=== PATIENT | male | born 2000 | race Caucasian/White ===

== ENCOUNTER 2019-06-01 17:48 | Emergency (ER) | payer OTHER, SELFPAY ==
[2019-06-01 18:12] VITALS: BP 73/58; PULSE 160; RESP 28; TEMP 37.7; O2SAT 98
--- NOTE | 2019-06-01 19:14 | ED.URI ---
HPI - URI/Sore Throat General Chief Complaint: Upper Respiratory Infection Stated Complaint: Sore throat/Congestion/Headache/Fever Time Seen by Provider: 06/01/19 18:50 Source: patient, family and RN notes reviewed Mode of arrival: ambulatory Limitations: no limitations History of Present Illness HPI Narrative: 19 year old male accompanied by mother with complaints of severe sore throat, fever,dizziness gradually getting worse the past 4 days.Patient has pain with opening his mouth, tongue is dry and white, tonsils red and swollen with no exudate or lesions noted, uvula red and swollen but midline, patient stating difficulty with swallowing. Patient states nausea and gags frequently not taking fluids well and no appetite, patient is extremely pale and states pain to throat is 10/10. Respirations even and nonlabored with rate 28 per minute and SAO2 98% on room air, lungs auscultated to be clear. MD elicited complaint: fever, cough, sore throat and rhinorrhea Pertinent past history: seasonal allergies Onset (ago): day(s) (5) Consistency: progressively worsening Severity: severe Pain scale (0-10): 10 Description of mucous: clear Able to tolerate fluids by mouth: No Exacerbating factors: swallowing, exertion, speaking and deep breaths Relieving factors: nothing Associated symptoms: fever, chills, rhinorrhea, sore throat, cough and vomiting (frequent gagging) Treatments prior to arrival: ibuprofen and other (flonase and Mucinex) Related Data Home Medications Medication Instructions Recorded Confirmed fluticasone propionate [Flonase 1 spray INTRANASAL DAILY 06/01/19 06/01/19 Allergy Relief] Allergies Allergy/AdvReac Type Severity Reaction Status Date / Time No Known Allergies Allergy Verified 06/01/19 18:28 Review of Systems Review of Systems: Narrative: CONSTITUTIONAL: Positive fever, chills, or sweats. EYES: Denies visual changes, redness, or discharge. ENT:positive rhinorrhea, congestion, sore throat, no otalgia. CARDIOVASCULAR: Denies chest pain, palpitations, or edema. RESPIRATORY:positive dry cough no dyspnea. GASTROINTESTINAL: Denies abdominal pain,positive nausea, gagging but no vomiting or diarrhea. GENITOURINARY: Denies dysuria or hematuria. SKIN: Denies rash or itching. MUSCULOSKELETAL: Denies back pain, joint pain, or myalgia. NEUROLOGIC: Denies headache, numbness, positive weakness and dizziness. PSYCHIATRIC:positive anxiety no depression. All systems reviewed & are unremarkable except as noted in HPI and below PMFSH Past Medical History Medical History (Updated 06/04/19 @ 15:06 by Loretta Tucker NP) Anxiety Asthma Seasonal allergies Social History Social History (Updated 06/04/19 @ 15:06 by Loretta Tucker NP) Tobacco type: e-cigarettes Living arrangements: with family Gender identity (if verbalized by the patient): Male Comments At time of signature, agree with nursing past medical, surgical, social and family history. There is no relevant family history pertinent to the presenting complaint Exam Const: General: alert and ill appearing Nutritional Appearance: thin Orientation/consciousness: patient oriented x3 Other: anxious HENMT: Ears: external ears normal and TM's normal bilaterally General nose exam: Normal external nose present, Normal nares present (red) and Nasal discharge present (clear) Mouth: Yes dry mucous membranes and Yes Abnormal oral and palatal mucosa present Teeth and gingiva: dentition normal Throat: uvula midline (red and swollen, tonsils red swollen no lesions or exudate noted) Eyes: Conjunctivae: conjunctivae normal Pupils: Equal, round and reactive pupils present EOM: EOMs intact bilaterally Neck: Neck: lymphadenopathy Chest: Chest palpation & inspection: normal inspection of the chest Resp: Effort & Inspection: normal respiratory effort and tachypneic (28 per minute) Auscultation: clear to auscultation bilaterally Cardio: Rate: tachycardic Rhythm:
[2019-06-01] MEDS: ONDANSETRON HCL ODT 4 MG TABLET PO (19:38)
[2019-06-01] MEDS: methylPREDNISolone ACETATE 80 MG/ML VIAL IM (19:38)
== END 2019-06-01 20:13 | disposition home or self-care (01) ==
PROVIDERS: Emergency Provider Registered Nurse
DX: J03.90 Acute tonsillitis, unspecified (principal); R11.2 Nausea with vomiting, unspecified; F17.200 Nicotine dependence, unspecified, uncomplicated; F41.9 Anxiety disorder, unspecified; J45.909 Unspecified asthma, uncomplicated
CPT/HCPCS: 87081; 87804; 87880; 96372; 99203; A9270; G0463; J1040

== ENCOUNTER 2021-08-20 14:16 | Emergency (ER) | payer OTHER, SELFPAY ==
[2021-08-20 14:32] VITALS: BP 117/65; PULSE 82; RESP 18; TEMP 36.9; O2SAT 98
--- NOTE | 2021-08-20 15:26 | ED.SKABFB ---
HPI - Skin/Abscess/Foreign Bdy General Chief complaint: Skin/Abscess/Foreign Body Stated complaint: Left arm possible infection Time Seen by Provider: 08/20/21 15:15 Source: patient, RN notes reviewed and old records reviewed Mode of arrival: ambulatory Limitations: no limitations History of Present Illness HPI narrative: 21 year old male presents to [facility] care with complaints of red irritated rash to his left forearm and also to the posterior aspect of his right leg with also new area on right arm. Rash is red irregular diffuse with clear drainage noted. 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 Patient states that rash is itchy denies any difficulty with his swallowing or breathing. MD complaint: rash Onset (ago): day(s) (4-5 days) Quality: pruritic Related Data Home Medications Medication Instructions Recorded Confirmed lamotrigine 25 mg PO DAILY 08/20/21 08/20/21 Allergies Allergy/AdvReac Type Severity Reaction Status Date / Time No Known Allergies Allergy Verified 08/20/21 14:48 Review of Systems Review of Systems: CONSTITUTIONAL: Denies fever, chills, or sweats. EYES: Denies visual changes, redness, or discharge. ENT: Denies rhinorrhea, congestion, sore throat, or otalgia. CARDIOVASCULAR: Denies chest pain, palpitations, or edema. RESPIRATORY: Denies cough or dyspnea. GASTROINTESTINAL: Denies abdominal pain, nausea, vomiting, or diarrhea. GENITOURINARY: Denies dysuria or hematuria. SKIN: Positive rash with itching to the posterior aspect of left forearm, small area on right arm and on posterior aspect of left leg MUSCULOSKELETAL: Denies back pain, joint pain, or myalgia. NEUROLOGIC: Denies headache, numbness, or weakness. PSYCHIATRIC: Positive for anxiety or depression. All systems reviewed & are unremarkable except as noted in HPI and below PMFSH Past Medical History Medical History Anxiety Asthma Seasonal allergies Social History Social History Tobacco type: e-cigarettes/vaping Gender identity (if verbalized by the patient): Male Comments At time of signature, agree with nursing past medical, surgical, social and family history. There is no relevant family history pertinent to the presenting complaint Exam Narrative: GENERAL: Well-appearing, well-nourished, and in no acute distress. HEAD: Normocephalic, atraumatic. EYES: PERRLA and EOMI. ENT: Nares clear, no rhinorrhea or epistaxis. Mucous membranes moist.TM's normal with good light reflex, throat pink with no lesion or tonsil swelling. NECK: Supple.no lymphadenopathy CHEST: Clear to auscultation. No respiratory distress.SAO2 98% on room air, no dyspnea or wheezing noted HEART: Regular rate and rhythm. No murmur heard. Normal peripheral pulses. ABDOMEN: Soft, nontender, nondistended, normal active bowel sounds. EXTREMITIES: Normal range of motion. No edema. SKIN: Warm, dry, red raised irregular shaped rash with clear drainage noted from area, is itchy NEURO: No focal deficits. Alert and oriented x3. Course Course Level of Care: Express Care Visit Vital Signs Vital signs: Vital Signs Temperature 36.9 C 08/20/21 14:32 Pulse Rate 82 08/20/21 14:32 Respiratory Rate 18 08/20/21 14:32 Blood Pressure 117/65 08/20/21 14:32 Pulse Oximetry 98 08/20/21 14:32 Temperature 36.9 C 08/20/21 14:32 Pulse Rate 82 08/20/21 14:32 Respiratory Rate 18 08/20/21 14:32 Blood Pressure 117/65 08/20/21 14:32 Pulse Oximetry 98 08/20/21 14:32 MDM - Skin/Abscess/Foreign Bdy Differential Diagnosis Differential diagnosis: Likely abscess of skin or subcutaneous tissue, allergic reaction to drug, eczema, impetigo, contact derm
== END 2021-08-20 15:40 | disposition home or self-care (01) ==
PROVIDERS: Emergency Provider Registered Nurse; PCP Nurse Practitioner Family
DX: L25.9 Unspecified contact dermatitis, unspecified cause (principal); J45.909 Unspecified asthma, uncomplicated; F17.290 Nicotine dependence, other tobacco product, uncomplicated
CPT/HCPCS: 99213; G0463

== ENCOUNTER 2022-04-14 10:05 | Emergency (ER) | payer OTHER, SELFPAY ==
[2022-04-14 10:14] VITALS: BP 118/72; PULSE 97; RESP 14; TEMP 37; O2SAT 98
--- NOTE | 2022-04-14 11:18 | ED.URI ---
HPI - URI/Sore Throat General Stated Complaint: Fever/Congestion/Cough Time Seen by Provider: 04/14/22 11:18 Source: patient and RN notes reviewed Mode of arrival: ambulatory Limitations: no limitations History of Present Illness HPI Narrative: 22-year-old male presenting for complaint of headache, body aches, sinus pressure/congestion, cough, fever/chills. Endorses vomiting last night due to cough. onset 2 days. He denies shortness of breath, chest pain, heart racing or diarrhea. He has taken ibuprofen for symptoms. Endorses several sick contacts at work with influenza or COVID. He plans to take a COVID test at home. elicited complaint: cough Related Data Home Medications Medication Instructions Recorded Confirmed No Home Medications 04/14/22 04/14/22 Allergies Allergy/AdvReac Type Severity Reaction Status Date / Time No Known Allergies Allergy Verified 04/14/22 11:08 Review of Systems Review of Systems: ROS per HPI PMFSH Past Medical History Medical History Anxiety Asthma Seasonal allergies Social History Social History Tobacco type: e-cigarettes/vaping Gender identity (if verbalized by the patient): Male Exam Narrative: GENERAL: Ill-appearing, nontoxic no acute distress. HEAD: Normocephalic EYES: PERRLA, conjunctivae clear ENT: Mucous membranes moist. TMs pearly tinoco with dull light reflex bilaterally; no tragal tenderness. Oropharynx erythematous without lesions or exudate, no drooling, no hoarseness, no trismus, uvula midline. No tripod positioning, muffled voice, soft palate or pharyngeal wall bulging NECK: Supple. No lymphadenopathy CHEST: Clear to auscultation, breath sounds equal. No wheezing, rhonchi, rales, or stridor. No respiratory distress, speaks in full sentences. HEART: Regular rate and rhythm. No murmur heard. SKIN: Warm, dry, no rash. NEURO: Alert and oriented x3. PSYCH: Normal mood and affect Course Course Emergency Course: Patient is aware of diagnosis, understands and agrees to treatment plan. Anticipatory guidance given. Patient agrees to follow-up as directed and is aware of reasons to seek care at the emergency department. Portions of this record may have been created with voice recognition software Level of Care: Express Care Visit Vital Signs Vital signs: Vital Signs Temperature 98.6 F 04/14/22 10:14 Pulse Rate 97 04/14/22 10:14 Respiratory Rate 14 04/14/22 10:14 Blood Pressure 118/72 04/14/22 10:14 Pulse Oximetry 98 04/14/22 10:14 Oxygen Delivery Room Air 04/14/22 10:14 Temperature 98.6 F 04/14/22 10:14 Pulse Rate 97 04/14/22 10:14 Respiratory Rate 14 04/14/22 10:14 Blood Pressure 118/72 04/14/22 10:14 Pulse Oximetry 98 04/14/22 10:14 Oxygen Delivery Room Air 04/14/22 10:14 reviewed MDM - URI/Sore Throat MDM Narrative Medical decision making narrative: Due to lack of resources, unable to perform influenza testing this time. Patient verbalizes understanding. Advised supportive measures and signs/symptoms to go to the ER. Pt is appropriate for outpt treatment and f/u. Differential Diagnosis Differential diagnosis: Likely upper respiratory infection, sinusitis and viral infection Discharge Plan Discharge Clinical Impression: Viral infection Patient Disposition: Home, Self-Care Condition: Stable Instructions: Antibiotic Form, Influenza (ED) Additional Instructions: You should avoid crowds/work until you are fever free for 24 hours without the use of fever reducing medications, or the symptoms are improved Rest. Drink plenty of fluids. Tylenol and ibuprofen every 8 hours as needed for pain/fever Recommend Flonase spray and Zyrtec (or Claritin/Lucy) for sinus pressure/congestion over the counter Cough syrup may cause drowsiness; avoid driving or take it at night time.
== END 2022-04-14 11:25 | disposition home or self-care (01) ==
PROVIDERS: Emergency Provider Nurse Practitioner Family; PCP Nurse Practitioner Family
DX: B34.9 Viral infection, unspecified (principal); F17.290 Nicotine dependence, other tobacco product, uncomplicated; J45.909 Unspecified asthma, uncomplicated
CPT/HCPCS: 99211; G0463